=== PATIENT | female | born 1955 | race Caucasian/White ===

== ENCOUNTER 2023-12-12 11:53 | Emergency (ER) | payer MEDICARE ==
--- NOTE | 2023-12-12 11:56 | ERPHSYRPT ---
- History of Present Illness Time Seen by Provider: 12/12/23 11:55 Source: patient Exam Limitations: no limitations Physician History: This is a right-handed 68-year-old white female patient who states that she went to remove the patient's walking collar and accidentally pinched her dog that she has had since it was a puppy and he bit her in the right forearm. Patient does not recall when her last tetanus shot was performed. She was trying to treat this at home but there was redness that was extending out from the 2-1/2 to 3 cm skin laceration site. Patient was treating this laceration wound with hydroperoxide and Neosporin ointment. Patient states that she is using Tylenol to help control the pain. She states this is sufficient in controlling the pain. She does not want anything stronger. Timing/Duration: day(s) (2) Quality: painful Severity: mild Location: extremities (Volar aspect right mid forearm) Possible Causes: other (Dog bite) Associated Symptoms: denies symptoms Allergies/Adverse Reactions: No Known Drug Allergies Allergy (Unverified 12/12/23 12:22) Home Medications: Amlodipine Besylate 5 mg [Norvasc 5 mg] 5 mg PO DAILY 12/12/23 [History] Losartan Potassium 100 mg PO DAILY 12/12/23 [History] Pravastatin Sodium 40 mg PO DAILY 12/12/23 [History] Venlafaxine HCl 37.5 mg [Effexor 37.5 mg] 37.5 mg PO DAILY 12/12/23 [History] hydroCHLOROthiazide [Hydrochlorothiazide] 12.5 mg PO DAILY 12/12/23 [History] Travel Risk - International Travel Have you traveled outside of the country in past 3 weeks: No - Emerging Infectious Disease Are you exhibiting symptoms associated with any current EIDs: No - Review of Systems Constitutional: No Symptoms Eyes: No Symptoms Ears, Nose, & Throat: No Symptoms Respiratory: No Symptoms Cardiac: No Symptoms Abdominal/Gastrointestinal: No Symptoms Genitourinary Symptoms: No Symptoms Musculoskeletal: No Symptoms Skin: Other (Dog bite laceration wound) Neurological: No Symptoms Psychological: No Symptoms Endocrine: No Symptoms Hematologic/Lymphatic: No Symptoms Immunological/Allergic: No Symptoms All Other Systems: Reviewed and Negative - Past Medical History Neurological History: No Pertinent History Cardiac History: High Cholesterol, Hypertension Respiratory History: No Pertinent History Endocrine Medical History: No Pertinent History Musculoskeletal History: Arthritis, Osteoarthritis GI Medical History: No Pertinent History History: No Pertinent History Psycho-Social History: No Pertinent History Female Reproductive Disorders: No Pertinent History Other Medical History: Hx of acute vertigo - Past Surgical History Past Surgical History: Yes - Nursing Vital Signs Nursing Vital Signs: Initial Vital Signs Temperature 98.4 F 12/12/23 12:11 Pulse Rate 83 12/12/23 12:11 Respiratory Rate 16 12/12/23 12:11 Blood Pressure 145/107 12/12/23 12:11 O2 Sat by Pulse Oximetry 95 12/12/23 12:11 Pain Scale Pain Intensity 0 - Physical Exam General Appearance: no apparent distress, alert, anxiety Eye Exam: PERRL/EOMI, eyes nml inspection Ears, Nose, Throat Exam: normal ENT inspection, moist mucous membranes Neck Exam: normal inspection, non-tender, supple, full range of motion Respiratory Exam: airway intact, No chest tenderness, No respiratory distress Gastrointestinal/Abdomen Exam: No tenderness Pelvic Exam: not done Rectal Exam: not done Back Exam: normal inspection, normal range of motion, No CVA tenderness, No vertebral tenderness Extremity Exam: lacerations (Approximately 2-1/2 to 3 cm superficial skin laceration into the superficial subcutaneous tissue without foreign body, odor or bleeding) Neurologic Exam: alert, oriented x 3, cooperative, insurance service representative II-XII nml as tested, normal mood/affect, nml cerebellar function, nml station & gait, sensation nml Skin Exam: laceration (2.5 to 3 cm laceration right forearm volar aspect as described above. There is cellulitis around the wound site) Lymphatic Exam: No adenopathy SpO2 Interpretation: normal O2 Delivery: Room Air - Course Nursing assessment & vital signs reviewed: Yes - Progress Progress: unchanged, pain not gone completely, re-examined Progress Note: 12/12/23 13:08 My medical decision making and the assignment of low complexity to this patient's medical issue is based on review of the patient's past medical history, review of patient's medication list, review the patient drug allergy list, history present illness and physical findings on examination. No laboratory or radiographic studies are necessary in this patient. Counseled pt/family regarding: diagnosis, need for follow-up Medical Desision Making - Diagnostic Testing Diagnostic test were ordered, analyzed, and reviewed by me: No - Risk of complications The pt has a mod risk of morbidity or mortality based on: Need for prescription drug management - Departure Departure Disposition: Home Clinical Impression: Laceration of right forearm, Cellulitis Condition: Stable Critical Care Time: No Referrals: JUVE GÓMEZ MD [Primary Care Provider] - Follow up/PCP as directed Additional Instructions: Do not use any lotions or ointments or creams to the site. Go home and clean the site at least once a day with soap and water. Allow the soap and water to enter directly into the wound. May lightly scrub the wound each time you are in the shower cleaning it. Blot dry use a hair blender then place a bandage over this site. Take your antibiotics as prescribed. Use Tylenol for pain control. Call your primary care provider today, 12/12/2023, to make arranges to be seen within the next 3 to 5 days. Return to the emergency department if the area of redness outside of the laceration site is extending or becoming larger. Prescriptions: Amoxicillin/Potassium Clav [Augmentin 500-125 Tablet] 1 each PO TID 7 Days #21 tablet
[2023-12-12 12:22] VITALS: BP 145/107; PULSE 83; RESP 16; TEMP 98.4; O2SAT 95
[2023-12-12] MEDS ORDERED: Augmentin 500-125 Tablet ONE (13:20)
[2023-12-12] MEDS ORDERED: Adacel Vial IM ONE (13:20)
[2023-12-12] MEDS: Augmentin 500-125 Tablet PO ONE (13:24)
[2023-12-12] MEDS: Adacel Vial IM ONE (13:24)
== END 2023-12-12 13:53 | disposition home or self-care (01) ==
LOC: ED 11:53
DX: S51.851A Open bite of right forearm, initial encounter (principal); L03.113 Cellulitis of right upper limb; W54.0XXA Bitten by dog, initial encounter; E78.5 Hyperlipidemia, unspecified; I10 Essential (primary) hypertension; Z79.899 Other long term (current) drug therapy; Z23 Encounter for immunization
CPT/HCPCS: 90471; 90715; 99283; A9270-GY

== ENCOUNTER 2025-07-02 08:05 | Observation (INO) | payer MEDICARE ==
[2025-07-02] MEDS ORDERED: CEFAZOLIN SODIUM ONE (08:16)
[2025-07-02 08:34] LABS: Hematocrit 41.9 % (34.1-44.9); Hemoglobin 13.1 g/dL (11.2-15.7); Mean Corpuscular Hemoglobin 27.2 pg (25.6-32.2); Mean Corpuscular Hgb Concent. 31.3 g/dL (32.2-35.5); Platelet Count 271 x10^3/uL (182-369); Red Blood Count 4.82 x10^6/uL (3.93-5.22); White Blood Count 10.2 x10^3/uL (3.98-10.04)
[2025-07-02 08:47] LABS: Calcium 9.2 mg/dL (8.4-10.2); Carbon Dioxide 29.0 mmol/L (22-30); Creatinine 1 1.1 mg/dL (0.52-1.04); EST GLOMERULAR FILTRATION RATE 53.7 ML/MIN; Glucose 130.0 mg/dL (74-106); Potassium 3.4 mmol/L (3.5-5.1); SGOT/AST 26.0 U/L (14-36); SGPT/ALT 14.0 U/L (0-35); Total Protein 7.5 g/dL (6.3-8.2)
[2025-07-02] MEDS ORDERED: Versed 2 MG/2 ML Injection ONE (09:54)
[2025-07-02] MEDS ORDERED: SUBLIMAZE 100 MCG/2 ML ONE ×2 (09:54→11:03)
[2025-07-02] MEDS ORDERED: propofoL IV ONE (09:55)
[2025-07-02] MEDS ORDERED: ROCURONIUM BROMIDE IV ONE (09:55)
[2025-07-02] MEDS ORDERED: Zofran 4 MG/2 ML VIAL ONE (09:55)
[2025-07-02] MEDS ORDERED: Xylocaine-Mpf 2% 5 Ml Vial ONE (09:55)
[2025-07-02] MEDS ORDERED: Marcaine Mpf 0.5% Vial 30 Ml ONE (09:58)
[2025-07-02] MEDS ORDERED: EXPAREL 133 MG/10 ML VIAL IJ ONE (09:58)
[2025-07-02] MEDS ORDERED: PHENYLEPHRINE HCL 10 MG in Dextrose 5%/Water IV Soln. 250 ML 249 ML IV PRN (10:34)
[2025-07-02] MEDS ORDERED: Quelicin Fliptop 200 MG/10 ML ONE (10:35)
[2025-07-02] MEDS ORDERED: ROBINUL ONE (11:12)
[2025-07-02] MEDS ORDERED: DEXMEDETOMIDINE 80 MCG/20ML-NS IV ONE (12:21)
[2025-07-02] MEDS ORDERED: BRIDION 200MG/2ML IV ONE (12:52)
--- NOTE | 2025-07-02 12:58 | XRAY ---
5 minutes and 45 seconds of fluoroscopy were used in surgery for a left ankle open reduction internal fixation, a left ankle syndesmotic reduction and removal of an external fixator.
--- NOTE | 2025-07-02 13:01 | XRAY ---
Indication: Left ankle ORIF, syndesmotic reduction, and removal external fixator. Intraoperative fluoroscopy provided for 5 minute 45 seconds. 22 digital spot images submitted for interpretation demonstrates removal external fixation device. New lateral fixation plate/transverse screws fixates distal fibula shaft fracture and 2 new orthopedic screw fixates medial malleolus fracture, both improved in apposition/alignment. Correlate with intraoperative findings/report.
[2025-07-02] MEDS ORDERED: PERCOCET TABLET 5/325MG PO PRN (15:14)
[2025-07-02] MEDS ORDERED: NON-FORMULARY ITEM (Semaglutide [Ozempic] 0.25 MG/0.368 ML Pen.Injctr) SQ SCH (15:15)
[2025-07-02] MEDS ORDERED: MEDICATION INTERVENTION MC SCH ×2 (15:30)
[2025-07-02] MEDS: Levofloxacin 500 MG Tablet PO SCH (16:46)
[2025-07-02] MEDS: EFFEXOR 37.5 MG PO SCH (16:47)
[2025-07-02] MEDS: hydroDIURIL 25 MG PO SCH (16:47)
[2025-07-02] MEDS: Ecotrin 325 MG PO SCH (16:47)
--- NOTE | 2025-07-02 17:22 | PCM.HP ---
History of Present Illness - Chief Complaint Chief Complaint: s/p L FOOT SURGERY Date: 07/02/25 History of Present Illness: is a 70 year old female with PMHX of hypertension, type 2 diabetes mellitus, hyperlipidemia, depression, and osteoarthritis. The patient was admitted today by podiatry following postoperative removal of the left external fixator from her lower extremity. She reports significant unsteadiness at home and is requesting rehabilitation placement if possible. Family members state they are no longer able to provide the level of care she requires. She will begin working with physical therapy tomorrow. Her last bowel movement was approximately one week ago; she took Dulcolax on Tuesday without results, so Miralax will be initiated daily. A Purwick device has been placed due to her inability to bear weight on the left lower extremity. A urinalysis will be obtained to assess for resolution of her recent urinary tract infection. The patient currently denies pain, and the podiatry note is pending. She reports no additional concerns at this time. - Review of Systems Constitutional: No Fever, No Chills Eyes: No Symptoms Ears, Nose, & Throat: No Symptoms Respiratory: No Cough, No Short Of Breath Cardiac: No Chest Pain, No Edema, No Syncope Abdominal/Gastrointestinal: No Abdominal Pain, No Nausea, No Vomiting, No Diarrhea Genitourinary Symptoms: No Dysuria Musculoskeletal: Other (LLE wrapped- post op ), No Back Pain, No Neck Pain Skin: No Rash Neurological: No Dizziness, No Focal Weakness, No Sensory Changes Psychological: No Symptoms Endocrine: No Symptoms Hematologic/Lymphatic: No Symptoms Immunological/Allergic: No Symptoms Medications & Allergies Home Medications: Home Medication List Amlodipine Besylate 5 mg [Norvasc 5 mg] 5 mg PO DAILY 12/12/23 [History Confirmed 07/02/25] Losartan Potassium 100 mg PO DAILY 12/12/23 [History Confirmed 07/02/25] Pravastatin Sodium 40 mg PO HS 12/12/23 [History Confirmed 07/01/25] Venlafaxine HCl 37.5 mg [Effexor 37.5 mg] 37.5 mg PO DAILY 12/12/23 [History Confirmed 07/01/25] hydroCHLOROthiazide [Hydrochlorothiazide] 12.5 mg PO DAILY 12/12/23 [History Confirmed 07/01/25] Lutein [Natural Lutein] 20 mg PO DAILY 06/24/25 [History Confirmed 07/01/25] Semaglutide [Ozempic] 0.25 mg SQ WEEKLY 06/24/25 [History Confirmed 07/02/25] Aspirin EC 325 mg [Ecotrin 325 MG] 325 mg PO QAM 30 Days #30 tablet 06/25/25 [Rx Confirmed 07/01/25] Oxycodone/APAP 5 mg/325 mg [Percocet Tablet 5/325Mg] 1.5 tab PO Q4H PRN PRN tablet 06/25/25 [Rx Confirmed 07/01/25] PANTOPRAZOLE 40 mg Tablet [Protonix 40MG Tablet] 40 mg PO DAILY 06/25/25 [History Confirmed 07/02/25] levoFLOXacin [Levofloxacin] 500 mg PO DAILY 10 Days #10 tablet 06/25/25 [Rx Confirmed 07/01/25] Allergies/Adverse Reactions: Allergies Allergy/AdvReac Type Severity Reaction Status Date / Time No Known Drug Allergies Allergy Verified 07/02/25 08:20 - Past Medical History Neurological History: No Pertinent History ENT History: No Pertinent History Cardiac History: High Cholesterol, Hypertension Respiratory History: No Pertinent History Endocrine Medical History: No Pertinent History Musculoskelatal History: Arthritis, Osteoarthritis GI Medical History: GERD History: No Pertinent History Pyscho-Social History: Depression Reproductive Disorders: Uterine Cancer Comment: Hx of acute vertigo. Hx of Uterine cancer. 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 Top and bottom denture. Wears glasses - Past Surgical History Past Surgical History: Yes Neuro Surgical History: No Pertinent History Cardiac History: No Pertinent History Respiratory Surgery: No Pertinent History GI Surgical History: Cholecystectomy, Hernia Repair Genitourinary Surgical Hx: No Pertinent History Musculskeletal Surgical Hx: Joint Replacement Female Surgical History: Hysterectomy, Tubal Ligation Other Surgical History: left knee replacement, BILATERAL INFECTED DUCTS TAKEN OUT OF BREAST. external fixator left leg, - Social History Smoking Status: Former smoker Exposure to second hand smoke: No Alcohol: None Drug Use: none - Social Determinants of Health Will the patient participate in the screening: Yes Do you worry about a steady place to live?: No In the past 12 months,have you had to go without utilities?: No Have you or anyone in your house had to go without enough: No Transportation Issues: No Has anyone in your support network made you feel unsafe?: No Does the patient want assistance with any of the above?: No - Physical Exam Vital Signs: Vital Signs - 24 hr Temp Pulse Resp BP Pulse Ox 07/02/25 14:48 97.8 F 82 20 108/59 97 07/02/25 08:46 97.7 F 99 H 18 119/94 95 07/02/25 08:27 97.7 F 99 H 18 119/94 95 General Appearance: no apparent distress, alert Neurologic Exam: alert, oriented x 3, cooperative, normal mood/affect, nml cerebellar function, nml station & gait, sensation nml, No motor deficits Eye Exam: PERRL/EOMI, eyes nml inspection Ears, Nose, Throat Exam: normal ENT inspection, TMs normal, pharynx normal, moist mucous membranes Neck Exam: normal inspection, non-tender, supple, full range of motion Respiratory Exam: normal breath sounds, lungs clear, No respiratory distress Cardiovascular Exam: regular rate/rhythm, normal heart sounds, normal peripheral pulses Gastrointestinal/Abdomen Exam: soft, normal bowel sounds, No tenderness, No mass Back Exam: normal inspection, normal range of motion, No CVA tenderness, No vertebral tenderness Extremity Exam: normal inspection, normal range of motion, pelvis stable, limited range of motion (LLE- wrapped post op by podiatry) Skin Exam: normal color, warm, dry, No rash Lymphatic Exam: No adenopathy Results - Labs Lab/Micro Results: Lab Results-Last 24 Hours 07/02/25 07/02/25 07/02/25 Range/Units 08:33 08:33 13:43 WBC 10.2 H (3.98-10.04) x10^3/uL RBC 4.82 (3.93-5.22) x10^6/uL Hgb 13.1 (11.2-15.7) g/dL Hct 41.9 (34.1-44.9) % MCV 86.9 (79.4-94.8) fL MCH 27.2 (25.6-32.2) pg MCHC 31.3 L (32.2-35.5) g/dL RDW 14.0 (11.7-14.4) % Plt Count 271 (182-369) x10^3/uL MPV 9.2 L (9.4-12.3) fL Sodium 138 (135-145) mmol/L Potassium 3.4 L (3.5-5.1) mmol/L Chloride 99 (98-107) mmol/L Carbon Dioxide 29 (22-30) mmol/L Anion Gap 13.6 (5-15) MEQ/L BUN 19 H (7-17) mg/dL Creatinine 1.10 H (0.52-1.04) mg/dL Estimated GFR 53.7 ML/MIN Glucose 130 H (74-106) mg/dL POC Glucometer 137 H (74 to 106) mg/dL Calcium 9.2 (8.4-10.2) mg/dL Total Bilirubin 1.00 (0.2-1.3) mg/dL AST 26 (14-36) U/L ALT 14 (0-35) U/L Alkaline Phosphatase 83 (38-126) U/L Serum Total Protein 7.5 (6.3-8.2) g/dL Albumin 3.9 (3.5-5.0) g/dL 07/02/25 Range/Units 16:27 WBC (3.98-10.04) x10^3/uL RBC (3.93-5.22) x10^6/uL Hgb (11.2-15.7) g/dL Hct (34.1-44.9) % MCV (79.4-94.8) fL MCH (25.6-32.2) pg MCHC (32.2-35.5) g/dL RDW (11.7-14.4) % Plt Count (182-369) x10^3/uL MPV (9.4-12.3) fL Sodium (135-145) mmol/L Potassium (3.5-5.1) mmol/L Chloride (98-107) mmol/L Carbon Dioxide (22-30) mmol/L Anion Gap (5-15) MEQ/L BUN (7-17) mg/dL Creatinine (0.52-1.04) mg/dL Estimated GFR ML/MIN Glucose (74-106) mg/dL POC Glucometer 119 H (74 to 106) mg/dL Calcium (8.4-10.2) mg/dL Total Bilirubin (0.2-1.3) mg/dL AST (14-36) U/L ALT (0-35) U/L Alkaline Phosphatase (38-126) U/L Serum Total Protein (6.3-8.2) g/dL Albumin (3.5-5.0) g/dL - Radiology Impressions Radiology Exams & Impressions: Radiology Procedures Category Date Time Status ANKLE (3 VIEWS) Routine Exams 07/02/25 07:23 Completed FLUOROSCOPY UP TO 1 HR Routine Exams 07/02/25 07:23 Completed Assessment/Plan (1) Fracture dislocation of left ankle joint Current Visit: No Status: Acute Assessment & Plan: - Removal of left external fixator by podiatry in OR today - PT /OT eval for rehab placement - Pt denies pain - Tylenol - Narcotic pain meds PRN - Cefazolin gave in the OR - Levaquin started by podiatry - Podiatry consult - Post op Day #1 - CBC, CMP reviewed - Radiology results reviewed - Non-weight bearing on the left leg Code(s): S82.892A - OTH FRACTURE OF LEFT LOWER LEG, INIT FOR CLOS FX (2) Constipation Current Visit: Yes Status: Acute Assessment & Plan: - Miralax daily started - No BM x1 week now Code(s): K59.00 - CONSTIPATION, UNSPECIFIED (3) DMII (diabetes mellitus, type 2) Current Visit: No Status: Chronic Assessment & Plan: - A1C - Continue home meds - HUmalog s/s - Accuchecks AC/HS (4) Depression Current Visit: No Status: Chronic Assessment & Plan: - Continue home meds Code(s): F32.A - DEPRESSION, UNSPECIFIED (5) HLD (hyperlipidemia) Current Visit: No Status: Chronic Assessment & Plan: - Continue statin Code(s): E78.5 - HYPERLIPIDEMIA, UNSPECIFIED (6) HTN (hypertension) Current Visit: No Status: Chronic Assessment & Plan: - BP stable - Continue home meds PLan of care time > 50 minutes Code(s): I10 - ESSENTIAL (PRIMARY) HYPERTENSION Telemedicine Encounter - Telemedicine Encounter Telemedicine Encounter: "The entirety of this encounter was performed via Telemedicine" This visit was performed using real-time audio and video connection between my location and thepatients locationwith the assistance of a surrogateat the patients location. Written or verbal consent was obtained from the patient/guardian to perform this visit usingsynchrFocal Point Energytelemedicine technology. Any patient questions regarding the telemedicine interaction were answered.
[2025-07-02] MEDS ORDERED: HUMALOG SQ PRN (17:47)
[2025-07-02] MEDS ORDERED: Narcan 0.4 MG/ML IV PRN (17:54)
[2025-07-02] MEDS: Miralax Powder 17GM PACKET PO SCH (18:59)
[2025-07-02] MEDS: ZOCOR 20MG PO SCH (22:11)
[2025-07-02] MEDS: OXYCODONE-ACETAMINOPHEN 10-325 PO PRN (22:18)
[2025-07-03 05:50] LABS: Hematocrit 35.1 % (34.1-44.9); Hemoglobin 10.9 g/dL (11.2-15.7); Mean Corpuscular Hemoglobin 27.0 pg (25.6-32.2); Mean Corpuscular Hgb Concent. 31.1 g/dL (32.2-35.5); Platelet Count 271 x10^3/uL (182-369); Red Blood Count 4.04 x10^6/uL (3.93-5.22); White Blood Count 10.5 x10^3/uL (3.98-10.04)
[2025-07-03 06:31] LABS: Calcium 8.4 mg/dL (8.4-10.2); Carbon Dioxide 27.0 mmol/L (22-30); Creatinine 1 0.97 mg/dL (0.52-1.04); EST GLOMERULAR FILTRATION RATE 62.5 ML/MIN; Glucose 126.0 mg/dL (74-106); Potassium 3.3 mmol/L (3.5-5.1); SGOT/AST 20.0 U/L (14-36); SGPT/ALT 9.0 U/L (0-35); Total Protein 6.6 g/dL (6.3-8.2)
--- NOTE | 2025-07-03 08:41 | XRAY ---
Indication: halfway placement. Comparison: None Portable chest slightly rotated. Lungs inflated without focal infiltrate, consolidation, or large effusion. Heart not enlarged for AP portable technique. Bony thorax intact with osteopenia and minimal degenerative changes. Impression: Nonacute chest with chronic bony findings.
[2025-07-03] MEDS: K-LYTE PO SCH (08:57)
[2025-07-03] MEDS ORDERED: NON-FORMULARY ITEM (Lutein [Natural Lutein] 20 MG Capsule) PO SCH (10:00)
[2025-07-03] MEDS: NORVASC 5 MG PO SCH (10:28)
[2025-07-03] MEDS: Cozaar 50 MG PO SCH (10:28)
[2025-07-03] MEDS: Protonix 40MG Tablet PO SCH (10:29)
--- NOTE | 2025-07-03 12:59 | PCM.NOTE ---
Date and Time: 07/03/25 1252 Subjective Assessment: 07/02/25 is a 70 year old female with PMHX of hypertension, type 2 diabetes mellitus, hyperlipidemia, depression, and osteoarthritis. The patient was admitted today by podiatry following postoperative removal of the left external fixator from her lower extremity. She reports significant unsteadiness at home and is requesting rehabilitation placement if possible. Family members state they are no longer able to provide the level of care she requires. She will begin working with physical therapy tomorrow. Her last bowel movement was approximately one week ago; she took Dulcolax on Tuesday without results, so Miralax will be initiated daily. A Purwick device has been placed due to her inability to bear weight on the left lower extremity. A urinalysis will be obtained to assess for resolution of her recent urinary tract infection. The patient currently denies pain, and the podiatry note is pending. She reports no additional concerns at this time. 07/03/25 Patient resting in bed. Potassium is 3.3 today and replaced. Will will recheck at 1400 today. Chest x-ray pending for placement. Case management working on rehab placement. Continue Levaquin per podiatry orders for postop left foot surgery. White blood cell count is 10.5 today. Pain is well-controlled at this time. Patient denies any further concerns at this time. - Review of Systems Constitutional: No Fever, No Chills Eyes: No Symptoms Ears, Nose, & Throat: No Symptoms Respiratory: No Cough, No Short Of Breath Cardiac: No Chest Pain, No Edema, No Syncope Abdominal/Gastrointestinal: No Abdominal Pain, No Nausea, No Vomiting, No Diarrhea Genitourinary Symptoms: No Dysuria Musculoskeletal: Other (LLE wrapped and elevated), No Back Pain, No Neck Pain Skin: No Rash Neurological: No Dizziness, No Focal Weakness, No Sensory Changes Psychological: No Symptoms Endocrine: No Symptoms Hematologic/Lymphatic: No Symptoms Immunological/Allergic: No Symptoms Objective Exam General Appearance: no apparent distress, alert, obese Neurologic Exam: alert, oriented x 3, cooperative, normal mood/affect, nml cerebellar function, sensation nml, No motor deficits Skin Exam: normal color, warm, dry Wound Assessment: Skin/Wound Assessment Wound/Incision Assessment Start: 07/03/25 03:50 Text: Status: Active Freq: Q4H Protocol: Document 07/03/25 12:00 AR (Rec: 07/03/25 12:05 AR [id number]) Wound/Incision Assessment Left Ankle Wound Assessment Shift Assessment Wound Type Incision Wound Stage Non Pressure Wound Dressing Status Dry & Intact Eye Exam: PERRL, EOMI, eyes nml inspection Ears, Nose, Throat Exam: normal ENT inspection, pharynx normal, moist mucous membranes Neck Exam: normal inspection, non-tender, supple, full range of motion Respiratory Exam: normal breath sounds, lungs clear, No respiratory distress Cardiovascular Exam: regular rate/rhythm, normal heart sounds Gastrointestinal/Abdomen Exam: soft, No tenderness, No mass Extremity Exam: normal inspection, normal range of motion, limited range of motion (LLE wrapped and elevated) Back Exam: normal inspection, normal range of motion, No CVA tenderness, No vertebral tenderness Pelvic Exam: deferred Rectal Exam: deferred Objective Data Vital Signs: Vital Signs - 24 hr Temp Pulse Resp BP Pulse Ox 07/03/25 11:45 97.6 F 74 18 136/57 92 L 07/03/25 07:42 97.8 F 70 16 116/65 92 L 07/03/25 04:00 97 F 80 17 116/62 95 07/03/25 00:00 97.9 F 83 20 119/63 96 07/02/25 20:00 97.9 F 88 20 104/62 95 07/02/25 16:00 97.8 F 82 18 108/59 97 07/02/25 14:48 97.8 F 82 20 108/59 97 Pain Assessment - Last Documented Pain Intensity [Left] 8 Pain Intensity 0 Pain Scale Used 0-10 Pain Scale Intake and Output: Intake & Output 07/01/25 07/02/25 07/03/25 07/04/25 11:59 11:59 11:59 11:59 Intake Total 600 Output Total 1100 Balance -500 Weight 100.244 kg 105.3 kg Lab Results: Lab Results-Last 24 Hours 07/02/25 07/02/25 07/02/25 Range/Units 13:43 16:27 22:13 WBC (3.98-10.04) x10^3/uL RBC (3.93-5.22) x10^6/uL Hgb (11.2-15.7) g/dL Hct (34.1-44.9) % MCV (79.4-94.8) fL MCH (25.6-32.2) pg MCHC (32.2-35.5) g/dL RDW (11.7-14.4) % Plt Count (182-369) x10^3/uL MPV (9.4-12.3) fL Sodium (135-145) mmol/L Potassium (3.5-5.1) mmol/L Chloride (98-107) mmol/L Carbon Dioxide (22-30) mmol/L Anion Gap (5-15) MEQ/L BUN (7-17) mg/dL Creatinine (0.52-1.04) mg/dL Estimated GFR ML/MIN Glucose (74-106) mg/dL POC Glucometer 137 H 119 H 133 H (74 to 106) mg/dL Hemoglobin A1c (4.5-6.0) % Calcium (8.4-10.2) mg/dL Total Bilirubin (0.2-1.3) mg/dL AST (14-36) U/L ALT (0-35) U/L Alkaline Phosphatase (38-126) U/L Serum Total Protein (6.3-8.2) g/dL Albumin (3.5-5.0) g/dL 07/03/25 07/03/25 07/03/25 Range/Units 04:30 04:39 04:39 WBC 10.5 H (3.98-10.04) x10^3/uL RBC 4.04 (3.93-5.22) x10^6/uL Hgb 10.9 L (11.2-15.7) g/dL Hct 35.1 (34.1-44.9) % MCV 86.9 (79.4-94.8) fL MCH 27.0 (25.6-32.2) pg MCHC 31.1 L (32.2-35.5) g/dL RDW 14.2 (11.7-14.4) % Plt Count 271 (182-369) x10^3/uL MPV 9.3 L (9.4-12.3) fL Sodium 136 (135-145) mmol/L Potassium 3.3 L (3.5-5.1) mmol/L Chloride 101 (98-107) mmol/L Carbon Dioxide 27 (22-30) mmol/L Anion Gap 11.2 (5-15) MEQ/L BUN 16 (7-17) mg/dL Creatinine 0.97 (0.52-1.04) mg/dL Estimated GFR 62.5 ML/MIN Glucose 126 H (74-106) mg/dL POC Glucometer (74 to 106) mg/dL Hemoglobin A1c 6.01 H (4.5-6.0) % Calcium 8.4 (8.4-10.2) mg/dL Total Bilirubin 0.60 (0.2-1.3) mg/dL AST 20 (14-36) U/L ALT 9 (0-35) U/L Alkaline Phosphatase 66 (38-126) U/L Serum Total Protein 6.6 (6.3-8.2) g/dL Albumin 3.3 L (3.5-5.0) g/dL 07/03/25 Range/Units 11:16 WBC (3.98-10.04) x10^3/uL RBC (3.93-5.22) x10^6/uL Hgb (11.2-15.7) g/dL Hct (34.1-44.9) % MCV (79.4-94.8) fL MCH (25.6-32.2) pg MCHC (32.2-35.5) g/dL RDW (11.7-14.4) % Plt Count (182-369) x10^3/uL MPV (9.4-12.3) fL Sodium (135-145) mmol/L Potassium (3.5-5.1) mmol/L Chloride (98-107) mmol/L Carbon Dioxide (22-30) mmol/L Anion Gap (5-15) MEQ/L BUN (7-17) mg/dL Creatinine (0.52-1.04) mg/dL Estimated GFR ML/MIN Glucose (74-106) mg/dL POC Glucometer 101 (74 to 106) mg/dL Hemoglobin A1c (4.5-6.0) % Calcium (8.4-10.2) mg/dL Total Bilirubin (0.2-1.3) mg/dL AST (14-36) U/L ALT (0-35) U/L Alkaline Phosphatase (38-126) U/L Serum Total Protein (6.3-8.2) g/dL Albumin (3.5-5.0) g/dL Radiology Exams: Radiology Procedures Category Date Time Status ANKLE (3 VIEWS) Routine Exams 07/02/25 07:23 Completed CHEST 1 VIEW (PORTABLE) Urgent Exams 07/03/25 07:26 Completed FLUOROSCOPY UP TO 1 HR Routine Exams 07/02/25 07:23 Completed Medications: Medications Generic Name Dose Route Start Last Admin Trade Name Freq PRN Reason Stop Dose Admin Amlodipine Besylate 5 mg 07/03/25 10:00 07/03/25 10:28 Amlodipine Besylate 5 Mg Tablet PO 08/02/25 09:59 5 mg DAILY MALIA Administration Aspirin 325 mg 07/02/25 16:00 07/03/25 10:29 Aspirin 325 Mg Tablet.Ec PO 08/01/25 15:59 325 mg QAM MALIA Administration Hydrochlorothiazide 12.5 mg 07/02/25 16:00 07/03/25 10:28 Hydrochlorothiazide 25 Mg Tablet PO 08/01/25 15:59 12.5 mg DAILY MALIA Administration Insulin Human Lispro 0 unit 07/02/25 17:47 Insulin Lispro 1 Unit SQ 08/01/25 17:46 UD PRN HYPERGLYCEMIA Levofloxacin 500 mg 07/02/25 16:00 07/03/25 10:29 Levofloxacin 500 Mg Tablet PO 07/10/25 10:01 500 mg DAILY MALIA Administration Losartan Potassium 100 mg 07/03/25 10:00 07/03/25 10:28 Losartan Potassium 50 Mg Tablet PO 08/02/25 09:59 100 mg DAILY MALIA Administration Miscellaneous Information 1 each 07/02/25 15:30 Medication Intervention 1 Each Each 08/01/25 15:29 .RN TO CHECK MALIA Miscellaneous Information 1 each 07/02/25 15:30 Medication Intervention 1 Each Each 08/01/25 15:29 .RN TO CHECK MALIA Naloxone HCl 0.4 mg 07/02/25 17:54 Naloxone Hcl 0.4 Mg/Ml Ml IV 08/01/25 17:53 PRN PRN RESPIRATORY DEPRESSION Oxycodone/Acetaminophen 1 tab 07/02/25 15:13 07/02/25 22:18 Oxycodone / Apap 10/325 Mg 1 Tablet PO 07/07/25 15:12 1 tab Q6H PRN PRN Administration POST OP PAIN Oxycodone/Acetaminophen 1 tab 07/02/25 17:53 Oxycodone Hcl/Apap 5 Mg/325 Mg Tablet PO 07/07/25 17:52 QIDP PRN PAIN Pantoprazole Sodium 40 mg 07/03/25 10:00 07/03/25 10:29 Protonix (Pantoprazole) 40 Mg Tablet PO 08/02/25 09:59 40 mg DAILY MALIA Administration Polyethylene Glycol 17 gm 07/02/25 17:44 07/03/25 10:36 Polyethylene Glycol 3350 17 Gm Packet PO 08/01/25 17:43 17 gm DAILY MALIA Administration Simvastatin 40 mg 07/02/25 22:00 07/02/25 22:11 Simvastatin 20 Mg Tablet PO 08/01/25 21:59 40 mg HS MALIA Administration Venlafaxine HCl 37.5 mg 07/02/25 16:00 07/03/25 10:28 Venlafaxine Hcl 37.5 Mg Tablet PO 08/01/25 15:59 37.5 mg DAILY MALIA Administration Discontinued Medications Generic Name Dose Route Start Last Admin Trade Name Freq PRN Reason Stop Dose Admin Bupivacaine HCl Confirm 07/02/25 09:58 Bupivacaine Hcl/Pf 150 Mg/30 Ml Vial Administered 07/02/25 09:59 Dose 150 mg .ROUTE .STK-MED ONE Bupivacaine Liposome Confirm 07/02/25 09:58 Bupivacaine Liposome/Pf 133 Mg/10 Ml Administered 07/02/25 09:59 Dose 266 mg IJ .STK-MED ONE Cefazolin Sodium Confirm 07/02/25 08:16 Cefazolin Sodium 2 Gm Vial Administered 07/02/25 08:17 Dose 2 gm .ROUTE .STK-MED ONE Dexamethasone Sodium Phosphate Confirm 07/02/25 09:55 Dexamethasone Sodium Phosphate 4 Mg/Ml Vial Administered 07/02/25 09:56 Dose 4 mg .ROUTE .STK-MED ONE Dexmedetomidine/Sodium Chloride Confirm 07/02/25 12:21 Dexmedetomidine In 0.9 % Nacl 80 Mcg/20 Ml Vial Administered 07/02/25 12:22 Dose 80 mcg IV .STK-MED ONE Fentanyl Citrate Confirm 07/02/25 09:54 Fentanyl Citrate 100 Mcg/2 Ml* Vial Administered 07/02/25 09:55 Dose 100 mcg .ROUTE .STK-MED ONE Fentanyl Citrate Confirm 07/02/25 11:03 Fentanyl Citrate 100 Mcg/2 Ml* Vial Administered 07/02/25 11:04 Dose 100 mcg .ROUTE .STK-MED ONE Glycopyrrolate Confirm 07/02/25 11:12 Glycopyrrolate 0.2 Mg/1ml Sdv Administered 07/02/25 11:13 Dose 0.2 mg .ROUTE .STK-MED ONE Cefazolin Sodium 2 gm/ Sodium 100 mls @ 200 mls/hr 07/02/25 08:06 07/02/25 15:10 Chloride IV 07/02/25 08:35 Not Given ONCALLTOOR ONE Sodium Chloride Confirm 07/02/25 08:15 Sodium Chloride 0.9% 1000 Ml Administered 07/02/25 08:16 Dose 1,000 mls @ ud .ROUTE .STK-MED ONE Sodium Chloride Confirm 07/02/25 08:16 Sodium Chloride 0.9% Administered 07/02/25 08:17 Dose 100 mls @ ud .ROUTE .STK-MED ONE Sodium Chloride 1,000 mls @ 50 mls/hr 07/02/25 08:30 07/03/25 03:48 Sodium Chloride 0.9% 1000 Ml IV 08/01/25 08:29 Not Given .Q20H MALIA Phenylephrine HCl 10 mg/ 250 mls @ 90 mls/hr 07/02/25 10:34 Dextrose IV 08/01/25 10:33 .Q2H47M PRN HYPOTENSION Protocol 60 MCG/MIN Sodium Chloride Confirm 07/02/25 11:46 Sodium Chloride 0.9% 1000 Ml Administered 07/02/25 11:47 Dose 1,000 mls @ ud .ROUTE .STK-MED ONE Lidocaine HCl Confirm 07/02/25 09:55 Lidocaine - Mpf 2% 5 Ml Vial Administered 07/02/25 09:56 Dose 5 ml .ROUTE .STK-MED ONE Midazolam HCl Confirm 07/02/25 09:54 Midazolam Hcl 2 Mg/2 Ml Vial Administered 07/02/25 09:55 Dose 2 mg .ROUTE .STK-MED ONE Ondansetron HCl Confirm 07/02/25 09:55 Ondansetron Hcl 4 Mg/2 Ml Vial Administered 07/02/25 09:56 Dose 4 mg .ROUTE .STK-MED ONE Oxycodone/Acetaminophen 1.5 tab 07/02/25 15:14 Oxycodone Hcl/Apap 5 Mg/325 Mg Tablet PO 07/07/25 15:13 Q4H PRN PRN PAIN 5-7 Potassium Bicarbonate 25 meq 07/03/25 08:00 07/03/25 10:36 Potassium Bicarbonate 25 Meq Tab PO 07/03/25 12:01 25 meq Q2H MALIA Administration Propofol Confirm 07/02/25 09:55 Propofol 200 Mg/20 Ml Vial Administered 07/02/25 09:56 Dose 200 mg IV .STK-MED ONE Rocuronium Ortley Confirm 07/02/25 09:55 Rocuronium Ortley 50 Mg/5 Ml Vial Administered 07/02/25 09:56 Dose 50 mg IV .STK-MED ONE Succinylcholine Chloride Confirm 07/02/25 10:35 Succinylcholine Chloride 200mg/10 Ml Vial Administered 07/02/25 10:36 Dose 140 mg .ROUTE .STK-MED ONE Sugammadex Sodium Confirm 07/02/25 12:52 Sugammadex Sodium 200 Mg/2 Ml Vial Administered 07/02/25 12:53 Dose 200 mg IV .STK-MED ONE Multi-Disciplinary Progress Notes: Multi-Disciplinary Progress Notes 07/03/25 11:44 Case Management Note by Clarissa Ramos PASRR DONE, NO LEVEL II REQUIRED- COPIES PLACED IN CHART NEW REFERRAL FAXED TO [facility] PER PATIENT/FAMILY REQUEST Initialized on 07/03/25 11:44 - END OF NOTE Assessment/Plan (1) Fracture dislocation of left ankle joint Current Visit: No Status: Acute Code(s): S82.892A - OTH FRACTURE OF LEFT LOWER LEG, INIT FOR CLOS FX (2) Constipation Current Visit: Yes Status: Acute Code(s): K59.00 - CONSTIPATION, UNSPECIFIED (3) DMII (diabetes mellitus, type 2) Current Visit: No Status: Chronic (4) Depression Current Visit: No Status: Chronic Code(s): F32.A - DEPRESSION, UNSPECIFIED (5) HLD (hyperlipidemia) Current Visit: No Status: Chronic Code(s): E78.5 - HYPERLIPIDEMIA, UNSPECIFIED (6) HTN (hypertension) Current Visit: No Status: Chronic Assessment & Plan: (1) Fracture dislocation of left ankle joint Current Visit: No Status: Acute Assessment & Plan: - Removal of left external fixator by podiatry in OR today - PT /OT eval for rehab placement - Pt denies pain - Tylenol - Narcotic pain meds PRN - Cefazolin gave in the OR - Levaquin started by podiatry - Podiatry consult - Post op Day #1 - CBC, CMP reviewed - Radiology results reviewed - Non-weight bearing on the left leg 12/3 - Awaiting podiatry note - CM working on rehab placement - CBC, CMP reviewed - WBC 10.5 - POD #2 Code(s): S82.892A - OTH FRACTURE OF LEFT LOWER LEG, INIT FOR CLOS FX (2) Constipation Current Visit: Yes Status: Acute Assessment & Plan: - Miralax daily started - No BM x1 week now 12/3 - Cont miralax - No BM overnight Code(s): K59.00 - CONSTIPATION, UNSPECIFIED (3) DMII (diabetes mellitus, type 2) Current Visit: No Status: Chronic Assessment & Plan: - A1C- 6.01- pre-diabetic - Pt reports she takes ozempic for weight loss not type II DM - Humalog s/s - Accuchecks AC/HS (4) Depression Current Visit: No Status: Chronic Assessment & Plan: - Continue home meds Code(s): F32.A - DEPRESSION, UNSPECIFIED (5) HLD (hyperlipidemia) Current Visit: No Status: Chronic Assessment & Plan: - Continue statin Code(s): E78.5 - HYPERLIPIDEMIA, UNSPECIFIED (6) HTN (hypertension) Current Visit: No Status: Chronic Assessment & Plan: - BP stable - Continue home meds VTE: Lovenox PI: Aiden Next of KIN : Daughter D/C plan: pending placement Plan of care time > 40 minutes Code(s): I10 - ESSENTIAL (PRIMARY) HYPERTENSION Code(s): I10 - ESSENTIAL (PRIMARY) HYPERTENSION
[2025-07-03] MEDS: ENOXAPARIN SODIUM SQ SCH (16:06)
[2025-07-03] MEDS: PERCOCET TABLET 5/325MG PO PRN (21:39)
[2025-07-04 05:01] LABS: Hematocrit 36.4 % (34.1-44.9); Hemoglobin 11.1 g/dL (11.2-15.7); Mean Corpuscular Hemoglobin 27.5 pg (25.6-32.2); Mean Corpuscular Hgb Concent. 30.5 g/dL (32.2-35.5); Platelet Count 229 x10^3/uL (182-369); Red Blood Count 4.04 x10^6/uL (3.93-5.22); White Blood Count 8.4 x10^3/uL (3.98-10.04)
[2025-07-04 05:18] LABS: Calcium 8.5 mg/dL (8.4-10.2); Carbon Dioxide 32.0 mmol/L (22-30); Creatinine 1 0.94 mg/dL (0.52-1.04); EST GLOMERULAR FILTRATION RATE 64.9 ML/MIN; Glucose 117.0 mg/dL (74-106); Potassium 3.9 mmol/L (3.5-5.1); SGOT/AST 25.0 U/L (14-36); SGPT/ALT 10.0 U/L (0-35); Total Protein 6.5 g/dL (6.3-8.2)
[2025-07-04 07:12] VITALS: RESP 18
--- NOTE | 2025-07-04 08:53 | OP ---
SURGERY DATE/TIME: 07/02/2025 [id number] PREOPERATIVE DIAGNOSES: 1) Left trimalleolar fracture. 2) Acute syndesmosis disruption. 3) Painful retained hardware in form of external fixation. 4) Instability with gait. POSTOPERATIVE DIAGNOSES: 1) Left trimalleolar fracture. 2) Acute syndesmosis disruption. 3) Painful retained hardware in form of external fixation. 4) Instability with gait. PROCEDURES: Removal of external fixator, open reduction and internal fixation of trimalleolar fracture and acute syndesmotic disruption repair. SURGEON: Can Pierre MD NURSING CONSULTANT: TIM Harrison ANESTHESIA: General plus a preoperative popliteal and saphenous block. HEMOSTASIS: Thigh tourniquet set to 325 mmHg for a total of 90 total tourniquet minutes. ESTIMATED BLOOD LOSS: Approximately 25 mL. MATERIALS: 4-0 Monocryl, 3-0 nylon, 2-0 Vicryl, an A.L.P.S. mvX fibular plate left 8 hole with a 3.5 x 50 and a 3.5 x 55 syndesmotic screw. For the medial malleolus, we used a 4.0 x 40 and a 4.0 x 65 mm screw. INJECTABLES: See Anesthesia report for details. INDICATIONS FOR PROCEDURE: The patient is a very pleasant 70-year-old female who has presented to my service approximately 2 weeks ago. At this time, she had fallen down a series of 3 steps and suffered a very significant fracture for which we urgently, for the sake of reduction, got her into an operating theater and placed an external fixator. She was seen yesterday and noted that there was a significant improvement of the soft tissue swelling and patient was capable of proceeding with surgical intervention given her skin quality, as well as fracture reduction. Patient has been made aware of all risks, complications and benefits of surgical intervention at this time, including but not limited to infection, hematoma, seroma, possibility of delayed wound healing, non-wound healing, and possible need for further surgical intervention at a later date. No guarantees were provided as to the outcome of surgical intervention. Plenty of time was allowed for the patient to ask questions, which were answered to her apparent satisfaction, as well as her daughter. No guarantees were provided as to the outcome. It is at this time we decided to proceed. DESCRIPTION OF PROCEDURE AND FINDINGS: The patient was brought into the PACU prior to the procedure and provided a popliteal and saphenous block. See Anesthesia report for details. At that time, patient was brought into the operating theater, placed on the operating room table in a supine position. At this time, general anesthesia was administered until the patient was adequately sedated. Once the patient was sedated, a well-padded thigh tourniquet was applied to the patient's left thigh, and the tourniquet was set. The left lower extremity was prepped and draped in the typical sterile fashion and lowered onto the surgical field. At this time, we started with removal of the external fixator. At this time, the external fixator was removed utilizing a T handle and then, utilizing a professional driver to remove the half pins, as well as the transfixation pin. Once this was performed, under fluoroscopic guidance, the lateral image was identified to see our proximal aspect of the fibula fracture and also identify in a reduced position our endpoint for our incision. An Esmarch was utilized to exsanguinate the leg and the tourniquet was then inflated. A linear incision was made down to the level of bone and to the fracture site at the level of the fibula, being careful not to damage any neurovascular structures along the way. Any neurovascular structures that were encountered were either cauterized or mobilized without damaging any of these neurovascular structures. Once the fracture site was identified, a dental pick was utilized to clean out any of the hematoma and then cleansed with sterile saline. Once this was performed, a lobster claw and a pointed reduction clamp was then utilized to reduce the fracture. It was of imperative importance that we went forward with restoring the fibular length. From that standpoint, once we deemed it to be adequate in both the mortise and the lateral view in alignment and length, we went ahead and pinned the plate. We started with fixation to the distal aspect of the plate and then proximal fixation to make sure we were centered along the fibula. Once this occurred, 2.7 mm screws, a combination of locking and nonlocking screws were utilized to secure the plate distally and then 3.5 mm screws were utilized cortical and locking screws were then introduced proximally. Once the position was assessed to be adequate, we proceeding with moving on to the medial malleolus. Another linear incision was made over the anterior caliculus of the medial malleolus, identifying the fracture and reducing this in near anatomical alignment. The anterior cortex through that incision was palpated once the alignment of the anterior cortex was deemed to be appropriate with no external rotation. Decision was made to go ahead and pin the fracture utilizing 2 converging K-wires. Once the position was assessed and deemed to be adequate, we went forward with permanent fixation in the form of cannulated partially-threaded screws for the medial malleolus. The syndesmosis was still out at this time, feeling a palpable click and with displacement and decision was made to go forward with syndesmotic fixation after external rotation test and fibular hook test was performed. Once this was performed, a 45 and a 50 mm fully-threaded noncannulated screw was then utilized to gain fixation through this site, getting near anatomic fixation of the ankle joint to the left lower extremity. Following this, copious amounts of sterile saline were utilized to flush the surgical site. A 4-0 Monocryl, 2-0 Vicryl were utilized in a simple interrupted buried-type fashion to coapt the subcutaneous skin edges and then, 3-0 nylon was utilized in a horizontal mattress-type fashion to coapt the skin in an everted-type fashion. A dressing consisting of Betadine, Adaptic, 4 x 4, Kerlix, ABD, and a well-padded posterior splint with sugar-tong was applied to the patient's left lower extremity with the foot orthogonal relative to the longitudinal axis of the leg. The patient was then reversed from anesthesia and returned to the postoperative anesthesia care unit with vital signs stable and vascular status intact. Patient handled the anesthesia, as well as the procedure, without significant complication. Postoperative orders as indicated in the patient's discharge chart.
[2025-07-04] MEDS: Docusate Sodium 100 MG PO SCH (09:05)
--- NOTE | 2025-07-04 11:15 | PCM.DS ---
Discharge Summary Date of Admission: 07/02/25 14:30 Date of Discharge: 07/04/25 Admitting Physician: IRASEMA MENDOZA MD Consults: Consults on Case 07/02/25 17:52 Consult Podiatry ROUTINE Primary Care Provider: RIP JOSEPH NP Allergies Allergies No Known Drug Allergies Allergy (Verified 07/02/25 08:20) Hospital Summary - Hospital Course Hospital Course: is a 70-year-old female with a past medical history of hypertension, type 2 diabetes mellitus, hyperlipidemia, depression, and osteoarthritis. She was admitted on 07/02/25 by podiatry following postoperative removal of the left external fixator from her lower extremity. During admission, she reported significant unsteadiness at home and requested rehabilitation placement, as her family members stated they were no longer able to provide the level of care she requires. She was noted to have constipation, with her last bowel movement approximately one week prior; MiraLAX was initiated, and later Colace was added. A Purwick device was placed due to her inability to bear weight on the left lower extremity, and urinalysis was planned to assess for resolution of a recent urinary tract infection. On 07/03, her potassium was 3.3 and replaced, chest x- ray was pending for placement, and she continued on Levaquin per podiatry orders for postoperative left foot surgery. Her white blood cell count was 10.5, pain was well controlled, and she denied further concerns. On 07/04, she was accepted to rehabilitation, with discharge planned on Levaquin per podiatry recommendations. She continued to report no bowel movement but denied abdominal pain. At discharge, her pain remained well controlled, her podiatry note was pending, and she denied any additional concerns. She was discharged in stable condition to rehabilitation. - Vitals & Intake/Output Vital Signs: Vital Signs Temperature 97.6 F 07/04/25 07:11 Pulse Rate 68 07/04/25 07:11 Respiratory Rate 18 07/04/25 07:11 Blood Pressure 134/68 07/04/25 07:11 O2 Sat by Pulse Oximetry 97 07/04/25 07:11 Intake & Output: Intake & Output 07/01/25 07/02/25 07/03/25 07/04/25 11:59 11:59 11:59 11:59 Intake Total 600 840 Output Total 1100 200 Balance -500 640 Weight 100.244 kg 105.3 kg - Lab Result Diagrams: 07/04/25 04:37 07/04/25 04:37 Lab Results-Last 24 Hrs: Lab Results-Last 24 Hours 07/03/25 07/03/25 07/03/25 Range/Units 11:16 14:00 16:18 WBC (3.98-10.04) x10^3/uL RBC (3.93-5.22) x10^6/uL Hgb (11.2-15.7) g/dL Hct (34.1-44.9) % MCV (79.4-94.8) fL MCH (25.6-32.2) pg MCHC (32.2-35.5) g/dL RDW (11.7-14.4) % Plt Count (182-369) x10^3/uL MPV (9.4-12.3) fL Sodium (135-145) mmol/L Potassium 3.7 (3.5-5.1) mmol/L Chloride (98-107) mmol/L Carbon Dioxide (22-30) mmol/L Anion Gap (5-15) MEQ/L BUN (7-17) mg/dL Creatinine (0.52-1.04) mg/dL Estimated GFR ML/MIN Glucose (74-106) mg/dL POC Glucometer 101 88 (74 to 106) mg/dL Calcium (8.4-10.2) mg/dL Magnesium (1.6-2.3) mg/dL Total Bilirubin (0.2-1.3) mg/dL AST (14-36) U/L ALT (0-35) U/L Alkaline Phosphatase (38-126) U/L Serum Total Protein (6.3-8.2) g/dL Albumin (3.5-5.0) g/dL 07/03/25 07/04/25 07/04/25 Range/Units 20:37 04:37 04:37 WBC 8.4 (3.98-10.04) x10^3/uL RBC 4.04 (3.93-5.22) x10^6/uL Hgb 11.1 L (11.2-15.7) g/dL Hct 36.4 (34.1-44.9) % MCV 90.1 (79.4-94.8) fL MCH 27.5 (25.6-32.2) pg MCHC 30.5 L (32.2-35.5) g/dL RDW 14.2 (11.7-14.4) % Plt Count 229 (182-369) x10^3/uL MPV 9.0 L (9.4-12.3) fL Sodium 136 (135-145) mmol/L Potassium 3.9 (3.5-5.1) mmol/L Chloride 98 (98-107) mmol/L Carbon Dioxide 32 H (22-30) mmol/L Anion Gap 9.2 (5-15) MEQ/L BUN 20 H (7-17) mg/dL Creatinine 0.94 (0.52-1.04) mg/dL Estimated GFR 64.9 ML/MIN Glucose 117 H (74-106) mg/dL POC Glucometer 117 H (74 to 106) mg/dL Calcium 8.5 (8.4-10.2) mg/dL Magnesium 1.9 (1.6-2.3) mg/dL Total Bilirubin 0.50 (0.2-1.3) mg/dL AST 25 (14-36) U/L ALT 10 (0-35) U/L Alkaline Phosphatase 67 (38-126) U/L Serum Total Protein 6.5 (6.3-8.2) g/dL Albumin 3.3 L (3.5-5.0) g/dL 07/04/25 Range/Units 06:45 WBC (3.98-10.04) x10^3/uL RBC (3.93-5.22) x10^6/uL Hgb (11.2-15.7) g/dL Hct (34.1-44.9) % MCV (79.4-94.8) fL MCH (25.6-32.2) pg MCHC (32.2-35.5) g/dL RDW (11.7-14.4) % Plt Count (182-369) x10^3/uL MPV (9.4-12.3) fL Sodium (135-145) mmol/L Potassium (3.5-5.1) mmol/L Chloride (98-107) mmol/L Carbon Dioxide (22-30) mmol/L Anion Gap (5-15) MEQ/L BUN (7-17) mg/dL Creatinine (0.52-1.04) mg/dL Estimated GFR ML/MIN Glucose (74-106) mg/dL POC Glucometer 95 (74 to 106) mg/dL Calcium (8.4-10.2) mg/dL Magnesium (1.6-2.3) mg/dL Total Bilirubin (0.2-1.3) mg/dL AST (14-36) U/L ALT (0-35) U/L Alkaline Phosphatase (38-126) U/L Serum Total Protein (6.3-8.2) g/dL Albumin (3.5-5.0) g/dL Micro Results-Entire Visit: Accuchecks Date 07/04/25 Date 07/03/25 Date 07/03/25 Date 07/03/25 Time 07:11 - Radiology Exams Ordered Rad Exams-Entire Visit: Radiology Procedures Category Date Time Status CHEST 1 VIEW (PORTABLE) Urgent Exams 07/03/25 07:26 Completed - Procedures and Test Procedures and Tests throughout Hospitalization: Therapy Orders & Screens 07/02/25 08:16 EKG STAT Comment: 07/02/25 17:48 PT Eval & Treat (MD Order) ONCE Reason for Eval:: for rehab placement Diagnosis: s/p L FOOT SURGERY OT Eval and Treat (MD Order) ONCE Comment: Physician Instructions: Reason For Exam: Evaluate: Yes Treat: Yes Reason for Evaluation: for rehab placement Diagnosis: s/p L FOOT SURGERY 07/03/25 08:00 OT Screen per Nursing Assess ONCE Comment: Protocol Order Physician Instructions: Greater than 3 points order OT Admission Screening Reason For Exam: Triggered on Admission Diagnosis: s/p L FOOT SURGERY Open Wound/Cellutlitis/Pressure Ulcers: Yes Acute Fx/ORIF/Change in wt bearing status: Yes Severe MUSCULOSKELETAL pain: No ADL Dysfunction: Yes Acute CVA w/Hemiparesis/Hemiplegia: No Decreased Functional Mobility/Strength: Yes Sprain/Strain: No Acute Post-op Mobility Dysfunction: Yes Total Points: 17 PT Screen per Nursing Assess ONCE Comment: Protocol Order Physician Instructions: Greater than 3 points order PT Admission Screenin Reason For Exam: Triggered on Admission Diagnosis: s/p L FOOT SURGERY Open Wound/Cellutlitis/Pressure Ulcers: Yes Acute Fx/ORIF/Change in wt bearing status: Yes Severe MUSCULOSKELETAL pain: No ADL Dysfunction: Yes Acute CVA w/Hemiparesis/Hemiplegia: No Decreased Functional Mobility/Strength: Yes Sprain/Strain: No Acute Post-op Mobility Dysfunction: Yes Total Points: 17 Discharge Exam General Appearance: no apparent distress, alert, obese Neurologic Exam: alert, oriented x 3, cooperative, normal mood/affect, nml cerebellar function, sensation nml, motor weakness, No motor deficits Eye Exam: PERRL, EOMI, eyes nml inspection Ears, Nose, Throat Exam: normal ENT inspection, pharynx normal, moist mucous membranes Neck Exam: normal inspection, non-tender, supple, full range of motion Respiratory Exam: normal breath sounds, lungs clear, No respiratory distress Cardiovascular Exam: regular rate/rhythm, normal heart sounds Gastrointestinal/Abdomen Exam: soft, No tenderness, No mass Pelvic Exam: deferred Rectal Exam: deferred Back Exam: normal inspection, normal range of motion, No CVA tenderness, No vertebral tenderness Extremity Exam: normal inspection, normal range of motion Skin Exam: normal color, warm, dry Wound Assessment: Skin/Wound Assessment Wound/Incision Assessment Start: 07/03/25 03:50 Text: Status: Active Freq: Q4H Protocol: Document 07/04/25 08:00 RM (Rec: 07/04/25 09:22 RM [id number]) Wound/Incision Assessment Left Ankle Wound Assessment Shift Assessment Wound Type Incision Wound Stage Non Pressure Wound Dressing Status Dry & Intact Drainage Amount None Drainage Odor None/Absent Comment Unable to assess site. Surgical drsg remains C/D/I, LLE elevated. CMS checks to left foot toes WNL. Wound Photo Photo Taken No Final Diagnosis/Problem List - Final Discharge Diagnosis/Problem (1) Fracture dislocation of left ankle joint Current Visit: No Status: Acute Code(s): S82.892A - OTH FRACTURE OF LEFT LOWER LEG, INIT FOR CLOS FX (2) Constipation Current Visit: Yes Status: Acute Code(s): K59.00 - CONSTIPATION, UNSPECIFIED (3) DMII (diabetes mellitus, type 2) Current Visit: No Status: Chronic (4) Depression Current Visit: No Status: Chronic Code(s): F32.A - DEPRESSION, UNSPECIFIED (5) HLD (hyperlipidemia) Current Visit: No Status: Chronic Code(s): E78.5 - HYPERLIPIDEMIA, UNSPECIFIED (6) HTN (hypertension) Current Visit: No Status: Chronic Assessment & Plan: (1) Fracture dislocation of left ankle joint Current Visit: No Status: Acute Assessment & Plan: - Removal of left external fixator by podiatry in OR today - PT /OT eval for rehab placement - Pt denies pain - Tylenol - Narcotic pain meds PRN - Cefazolin gave in the OR - Levaquin started by podiatry - Podiatry consult - Post op Day #1 - CBC, CMP reviewed - Radiology results reviewed - Non-weight bearing on the left leg 07/03 - Awaiting podiatry note - CM working on rehab placement - CBC, CMP reviewed - WBC 10.5 - POD #2 07/04 - Podiatry note pending - WBC 8.4- ok - CBC, CMP reviewed - D/C with levaquin PO Code(s): S82.892A - OTH FRACTURE OF LEFT LOWER LEG, INIT FOR CLOS FX (2) Constipation Current Visit: Yes Status: Acute Assessment & Plan: - Miralax daily started - No BM x1 week now 07/03 - Cont miralax - No BM overnight 07/04 - No BM - Colace BID added - Cont. Miralax Code(s): K59.00 - CONSTIPATION, UNSPECIFIED (3) DMII (diabetes mellitus, type 2) Current Visit: No Status: Chronic Assessment & Plan: - A1C- 6.01- pre-diabetic - Pt reports she takes ozempic for weight loss not type II DM - Humalog s/s - Accuchecks AC/HS (4) Depression Current Visit: No Status: Chronic Assessment & Plan: - Continue home meds Code(s): F32.A - DEPRESSION, UNSPECIFIED (5) HLD (hyperlipidemia) Current Visit: No Status: Chronic Assessment & Plan: - Continue statin Code(s): E78.5 - HYPERLIPIDEMIA, UNSPECIFIED (6) HTN (hypertension) Current Visit: No Status: Chronic Assessment & Plan: - BP stable - Continue home meds D/C plan : > 40 minutes Code(s): I10 - ESSENTIAL (PRIMARY) HYPERTENSION - Discharge Discharge Date: 07/04/25 (Rehab) Disposition: XFER OTHER Condition: Stable Prescriptions: New Docusate Sodium 100 mg [Docusate Sodium 100 MG] 100 mg PO BID 30 Days #60 cap Polyethylene Glycol 3350 17 gm [Miralax Powder 17GM PACKET] 17 gm PO DAILY 30 Days #30 pkt Oxycodone/APAP 5 mg/325 mg [Percocet Tablet 5/325Mg] 1 tab PO QIDP PRN 3 Days #12 tablet MDD 4 PRN Reason: Pain Continue Amlodipine Besylate 5 mg [Norvasc 5 mg] 5 mg PO DAILY hydroCHLOROthiazide [Hydrochlorothiazide] 12.5 mg PO DAILY Venlafaxine HCl 37.5 mg [Effexor 37.5 mg] 37.5 mg PO DAILY Pravastatin Sodium 40 mg PO HS Losartan Potassium 100 mg PO DAILY Lutein [Natural Lutein] 20 mg PO DAILY Semaglutide [Ozempic] 0.25 mg SQ WEEKLY PANTOPRAZOLE 40 mg Tablet [Protonix 40MG Tablet] 40 mg PO DAILY Aspirin EC 325 mg [Ecotrin 325 MG] 325 mg PO QAM 30 Days #30 tablet levoFLOXacin [Levofloxacin] 500 mg PO DAILY 10 Days #10 tablet Oxycodone/APAP 5 mg/325 mg [Percocet Tablet 5/325Mg] 1.5 tab PO Q4H PRN PRN tablet PRN Reason: PAIN 5-7 Additional Instructions: CARE HOME ORDERS: ADMIT TO SNF FACILITY [address] AC HS ACCU CHECKS NON WT BEARING TO OP ANKLE NEED THE REST OF SAMANTHA ORDERS Follow up with: SAMANTHA CHAO DPM [PODIATRY STAFF, PODIATRY] - 07/10/25 2:30 pm
--- NOTE | 2025-07-04 11:21 | PCM.CONS ---
Podiatry HPI - Consult Date of Consultation Date: 07/02/25 Consulting Provider: SAMANTHA CHAO DPM - HPI History of Present Illness: Gaby is a pleasant 70-year-old female who presents status post removal of external fixation and open reduction internal fixation of a left ankle trimalleolar fracture with syndesmosis reduction. She is a fall risk and is unable to safely care for herself at home. The patient is progressing well overall. Discussion was held regarding her weightbearing status during the period she had the external fixator in place; she was unintentionally non-compliant. Given her current functional limitations and safety concerns, placement in a rehabilitation facility is recommended to support recovery, ensure adherence to non-weightbearing restrictions, and reduce risk of further injury. Medications & Allergies Home Medications: Home Medication List Amlodipine Besylate 5 mg [Norvasc 5 mg] 5 mg PO DAILY 12/12/23 [History Confirmed 07/02/25] Losartan Potassium 100 mg PO DAILY 12/12/23 [History Confirmed 07/02/25] Pravastatin Sodium 40 mg PO HS 12/12/23 [History Confirmed 07/01/25] Venlafaxine HCl 37.5 mg [Effexor 37.5 mg] 37.5 mg PO DAILY 12/12/23 [History Confirmed 07/01/25] hydroCHLOROthiazide [Hydrochlorothiazide] 12.5 mg PO DAILY 12/12/23 [History Confirmed 07/01/25] Lutein [Natural Lutein] 20 mg PO DAILY 06/24/25 [History Confirmed 07/01/25] Semaglutide [Ozempic] 0.25 mg SQ WEEKLY 06/24/25 [History Confirmed 07/02/25] Aspirin EC 325 mg [Ecotrin 325 MG] 325 mg PO QAM 30 Days #30 tablet 06/25/25 [Rx Confirmed 07/01/25] Oxycodone/APAP 5 mg/325 mg [Percocet Tablet 5/325Mg] 1.5 tab PO Q4H PRN PRN tablet 06/25/25 [Rx Confirmed 07/01/25] PANTOPRAZOLE 40 mg Tablet [Protonix 40MG Tablet] 40 mg PO DAILY 06/25/25 [History Confirmed 07/02/25] levoFLOXacin [Levofloxacin] 500 mg PO DAILY 10 Days #10 tablet 06/25/25 [Rx Confirmed 07/01/25] Docusate Sodium 100 mg [Docusate Sodium 100 MG] 100 mg PO BID 30 Days #60 cap 07/04/25 [Rx] Oxycodone/APAP 5 mg/325 mg [Percocet Tablet 5/325Mg] 1 tab PO QIDP PRN 3 Days #12 tablet MDD 4 07/04/25 [Rx] Polyethylene Glycol 3350 17 gm [Miralax Powder 17GM PACKET] 17 gm PO DAILY 30 Days #30 pkt 07/04/25 [Rx] Allergies/Adverse Reactions: Allergies Allergy/AdvReac Type Severity Reaction Status Date / Time No Known Drug Allergies Allergy Verified 07/02/25 08:20 - Past Medical History Neurological History: No Pertinent History ENT History: No Pertinent History Cardiac History: High Cholesterol, Hypertension Respiratory History: No Pertinent History Endocrine Medical History: No Pertinent History Musculoskelatal History: Arthritis, Osteoarthritis GI Medical History: GERD History: No Pertinent History Pyscho-Social History: Depression Reproductive Disorders: Uterine Cancer Comment: Hx of acute vertigo. Hx of Uterine cancer. 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 Top and bottom denture. Wears glasses - Past Surgical History Past Surgical History: Yes Neuro Surgical History: No Pertinent History Cardiac History: No Pertinent History Respiratory Surgery: No Pertinent History GI Surgical History: Cholecystectomy, Hernia Repair Genitourinary Surgical Hx: No Pertinent History Musculskeletal Surgical Hx: Joint Replacement Female Surgical History: Hysterectomy, Tubal Ligation Other Surgical History: left knee replacement, BILATERAL INFECTED DUCTS TAKEN OUT OF BREAST. external fixator left leg, - Social History Smoking Status: Former smoker Exposure to second hand smoke: No Alcohol: None Drug Use: none - Social Determinants of Health Will the patient participate in the screening: Yes Do you worry about a steady place to live?: No Do you have any problems with any of the following?: No known problems In the past 12 months,have you had to go without utilities?: No Have you or anyone in your house had to go without enough: No Transportation Issues: No Has anyone in your support network made you feel unsafe?: No Does the patient want assistance with any of the above?: No Physical Exam - Narrative Narrative Physical Exam: Podiatry Physical Exam Results - Labs Lab/Micro Results: Lab Results-Last 24 Hours 07/03/25 07/03/25 07/03/25 Range/Units 14:00 16:18 20:37 WBC (3.98-10.04) x10^3/uL RBC (3.93-5.22) x10^6/uL Hgb (11.2-15.7) g/dL Hct (34.1-44.9) % MCV (79.4-94.8) fL MCH (25.6-32.2) pg MCHC (32.2-35.5) g/dL RDW (11.7-14.4) % Plt Count (182-369) x10^3/uL MPV (9.4-12.3) fL Sodium (135-145) mmol/L Potassium 3.7 (3.5-5.1) mmol/L Chloride (98-107) mmol/L Carbon Dioxide (22-30) mmol/L Anion Gap (5-15) MEQ/L BUN (7-17) mg/dL Creatinine (0.52-1.04) mg/dL Estimated GFR ML/MIN Glucose (74-106) mg/dL POC Glucometer 88 117 H (74 to 106) mg/dL Calcium (8.4-10.2) mg/dL Magnesium (1.6-2.3) mg/dL Total Bilirubin (0.2-1.3) mg/dL AST (14-36) U/L ALT (0-35) U/L Alkaline Phosphatase (38-126) U/L Serum Total Protein (6.3-8.2) g/dL Albumin (3.5-5.0) g/dL 07/04/25 07/04/25 07/04/25 Range/Units 04:37 04:37 06:45 WBC 8.4 (3.98-10.04) x10^3/uL RBC 4.04 (3.93-5.22) x10^6/uL Hgb 11.1 L (11.2-15.7) g/dL Hct 36.4 (34.1-44.9) % MCV 90.1 (79.4-94.8) fL MCH 27.5 (25.6-32.2) pg MCHC 30.5 L (32.2-35.5) g/dL RDW 14.2 (11.7-14.4) % Plt Count 229 (182-369) x10^3/uL MPV 9.0 L (9.4-12.3) fL Sodium 136 (135-145) mmol/L Potassium 3.9 (3.5-5.1) mmol/L Chloride 98 (98-107) mmol/L Carbon Dioxide 32 H (22-30) mmol/L Anion Gap 9.2 (5-15) MEQ/L BUN 20 H (7-17) mg/dL Creatinine 0.94 (0.52-1.04) mg/dL Estimated GFR 64.9 ML/MIN Glucose 117 H (74-106) mg/dL POC Glucometer 95 (74 to 106) mg/dL Calcium 8.5 (8.4-10.2) mg/dL Magnesium 1.9 (1.6-2.3) mg/dL Total Bilirubin 0.50 (0.2-1.3) mg/dL AST 25 (14-36) U/L ALT 10 (0-35) U/L Alkaline Phosphatase 67 (38-126) U/L Serum Total Protein 6.5 (6.3-8.2) g/dL Albumin 3.3 L (3.5-5.0) g/dL Accuchecks Date 07/04/25 Date 07/03/25 Date 07/03/25 Date 07/03/25 Time 07:11 - Radiology Impressions Radiology Exams & Impressions: Radiology Procedures Category Date Time Status CHEST 1 VIEW (PORTABLE) Urgent Exams 07/03/25 07:26 Completed Assessment/Plan (1) Decreased ambulation status Current Visit: Yes Status: Acute Code(s): Z74.09 - OTHER REDUCED MOBILITY (2) Altered gait Current Visit: Yes Status: Acute Code(s): R26.9 - UNSPECIFIED ABNORMALITIES OF GAIT AND MOBILITY (3) Fracture dislocation of left ankle joint Current Visit: No Status: Acute Assessment & Plan: Ok to d.c. to rehab when criteria are met and PT/OT assessment is completed. Non-weightbearing on the left operative ankle. Leave dressing clean, dry, and intact. Continue Levaquin as ordered in-house to complete the 10-day course. Continue ASA 325 as ordered. Pain meds: 7.5/325 mg Percocet. Follow up in 1 week. Code(s): S82.892A - OT FRACTURE OF LEFT LOWER LEG, INIT FOR CLOS FX
[2025-07-04 12:01] VITALS: BP 94/57; PULSE 72; TEMP 97.3; O2SAT 96
== END 2025-07-04 15:59 ==
LOC: SDC 08:05 → MED SURG 14:30 → SDC 14:31
PROVIDERS: ADMIT Internal Medicine; ATTEND Internal Medicine
DX: S82.892A Other fracture of left lower leg, initial encounter for closed fracture (principal); S93.432A Sprain of tibiofibular ligament of left ankle, initial encounter; T84.84XA Pain due to internal orthopedic prosthetic devices, implants and grafts, initial encounter; R26.9 Unspecified abnormalities of gait and mobility; I10 Essential (primary) hypertension; E11.9 Type 2 diabetes mellitus without complications; E78.5 Hyperlipidemia, unspecified; M19.90 Unspecified osteoarthritis, unspecified site; K59.00 Constipation, unspecified; F32.A Depression, unspecified; M25.572 Pain in left ankle and joints of left foot; Z74.09 Other reduced mobility; Z79.899 Other long term (current) drug therapy; Z85.42 Personal history of malignant neoplasm of other parts of uterus
CPT/HCPCS: 01480; 20694; 27822; 27829; 36415; 64447; 64450; 71045; 73610; 76000; 76942; 80053; 82947; 83036; 83735; 84132; 85027; 93005; 97161; 97165; 97530; 99100; C1713; G0378; Q3014